=== PATIENT | male | born 1970 | race Caucasian/White ===

== ENCOUNTER 2022-03-15 09:51 | Outpatient (CLI) | payer BC, SELFPAY ==
--- NOTE | ~2022-03-15 | XR_ITS ---
EXAM: XR hip BI 2V w AP pelvis DATE: 03/15/2022 10:37 HISTORY: FALL X3WK AGO ONTO RT SIDE,SEVERE LT HIP PAIN,SCIATICA . COMPARISON: None available. FINDINGS: Normal mineralization. No fracture or dislocation. No lytic or blastic lesion. Mild superi or hip joint space narrowing and sclerosis bilaterally. Moderate pelvic and hip enthesopathy. Degener ative change in the lower lumbar spine. No erosion or periosteal change. Soft tissues within normal l imits. IMPRESSION: No acute osseous finding in the pelvis or bilateral hips Reviewed, dictated and finalized at location K. VAN DRIVER
--- NOTE | ~2022-03-15 | XR_ITS ---
EXAM: XR_CERV2-3V_CR DATE: 03/15/2022 10:36 HISTORY: FALL X3WK AGO ONTO RT SIDE,WHOLE BACK PAIN,SEVERE LT HIP SY . COMPARISON: None available. FINDINGS: Dental implants. Craniocervical association and atlantoaxial joint are aligned. Prominent a nterior arch of C1 versus accessory ossicle, with significant surrounding degenerative change. No pre vertebral soft tissue swelling. Vertebral bodies are aligned. Vertebral body heights are maintained. Multilevel mild disc space narrowing. Multilevel marked bridging anterior osteophyte formation. Multi level facet sclerosis and hypertrophy. IMPRESSION: Severe degenerative change at the atlantoaxial joint. Multilevel degenerative disc diseas e with large bridging osteophytes. Multilevel mild facet arthropathy. Reviewed, dictated and finalized at location K. SURE TANK OPERATOR IMPRESSION: Severe degenerative change at the atlantoaxial joint. Multilevel de generative disc disease with large bridging osteophytes. Multilevel mild facet arthropathy.
--- NOTE | ~2022-03-15 | XR_ITS ---
EXAM: XR thoracic spine 3V DATE: 03/15/2022 10:36 HISTORY: FALL X3WK AGO ONTO RT SIDE,WHOLE BACK PAIN,SEVERE LT HIP SY . COMPARISON: None available. FINDINGS: Median sternotomy wires, superior two wires are fractured. Incompletely visualized pacer l mp. Multilevel disc space narrowing. Flowing anterior osteophytes. No fracture or traumatic malalig nment. Mediastinal vascular clips. Visualized lung parenchyma clear. IMPRESSION: Multilevel degenerative disc disease. DISH. Reviewed, dictated and finalized at location K. CAL ASSISTANT FLOAT
--- NOTE | ~2022-03-15 | XR_ITS ---
EXAM: XR lumbar spine 2-3V DATE: 03/15/2022 10:36 HISTORY: FALL X3WK AGO ONTO RT SIDE,WHOLE BACK PAIN,SEVERE LT HIP SY . COMPARISON: None available. FINDINGS: 5 nonrib-bearing lumbar-type vertebral bodies. Pedicles intact. Normal vertebral body alig nment. Vertebral body heights preserved. Multilevel mild disc space narrowing and marginal osteophyto sis, including large bridging anterior osteophytes. Moderate moderate-severe multilevel facet scleros is and hypertrophy. No fracture or dislocation. IMPRESSION: Multilevel degenerative disc disease. Moderate-severe multilevel facet arthropathy. Reviewed, dictated and finalized at location K. L ENGINEERING TECHNICIAN IMPRESSION: Multilevel degenerative disc disease. Moderate-severe multilevel fa cet arthropathy.
== END 2022-03-15 09:52 | disposition home or self-care (01) ==
LOC: CHSIMG 09:54
PROVIDERS: PCP Family Medicine; Visit Provider Family Medicine
DX: G89.29 Other chronic pain (principal); M54.9 Dorsalgia, unspecified; I69.354 Hemiplegia and hemiparesis following cerebral infarction affecting left non-dominant side; M51.36 Other intervertebral disc degeneration, lumbar region; M12.88 Other specific arthropathies, not elsewhere classified, other specified site; M51.34 Other intervertebral disc degeneration, thoracic region; M48.14 Ankylosing hyperostosis [Forestier], thoracic region; M50.30 Other cervical disc degeneration, unspecified cervical region
CPT/HCPCS: 72040; 72072; 72100; 73521

== ENCOUNTER 2022-03-21 08:06 | Outpatient (RCR) | payer BC, SELFPAY ==
--- NOTE | 2022-03-21 09:46 | PTOPEVAL1 ---
Assessment and note entered by JT File, PT Evaluation Information Assessment Status Evaluation Diagnosis hemiparesis, hemiplegia Onset 03/13/22 Subjective Information patient reports he began having weakness on the L side of his body that he noticed after a fall. he reports he had a prior fall last year. currently they are thinking he has had a CVA, but no imaging has been done yet to confirm. he reports this last fall occured after his hips gave out and he fell flat to the ground. he reports he is coming to therapy for the weakness on the L side and for the the pain in the L hip and lower back. he reports he is awaiting an MRI (needs specialized for pacemaker). he reports he has increased pain in the L hip with rotating the hip outwards. Reported Pain Level Pain Score 0,0: Self Report Assessment PT Clinical Summary mr. kraft presents to skilled PT services for evaluation of weakness, pain, and abnormal gait following a potential stroke. he presents with L UE and LE hemiparesis, abnormal gait mechanics, decreased balance, and decreased functional activity performance. he would benefit from skilled PT to improve his objective/functional deficits and progress towards a return to his prior level functional activity performance/ quality of life. patient would do well to have an MRI of the head and neck to determine exact pathology for his L sided hemiparesis and abnormal gait. Plan of Care Interventions Gait Training,Neuro Re-education,Patient/Caregiver Educati,Therapeutic Activities,Therapeutic Exercise PT Services Indicated Yes Treatment Frequency and 3x weekly for 12 visits Duration These treatments will address the objective and functional deficits as defined above. The patient will be advanced safely and appropriately in order for the patient to progress towards his/her prior level of function. Additional exercises will be introduced and as well as a comprehensive home exercise program upon discharge, if needed, ?to ensure carryover of functional gains achieved in the clinic. This treatment plan has been reviewed and agreement upon by the patient.
--- NOTE | 2022-04-03 14:54 | OTOPEVAL1 ---
Assessment and note entered by Marine Victoria OT Evaluation Information Assessment Status Evaluation Diagnosis Hemiplegia and hemiparesis Onset 02/2023 Reported Pain Level Pain Score 10,10: Self Report Pain Score 10,2: Self Report Assessment OT Clinical Summary The patient is a 51 year old male who was referred to outpatient OT due to hemiplegia and hemiparesis following cerebral infarction with the patient experiencing L sided weakness. The patient previously was independent with all ADLs, IADLs, demonstrated WNL L UE strength, AROM, putty worker/ pinch strength and fine motor coordination. The patient now demonstrates significantly decreased UE AROM, UE strength, poor putty worker/pinch strength, poor fine motor coordination and utilizes shoulder to compensate for movements of distal UE. The patient demonstrates severely diminished sensation of L hand affecting safety during ADLs/IADLs. The patient requires skilled OT to address difficulties with L UE that affect his ability to use his hand for typing at work and all other aspects of ADLs. Plan of Care Interventions Therapeutic Exercise,Manual Therapy,Neuro Re- education,Therapeutic Activities,Hot Pack/Cold Pack,Cognitive Function,Sensory Integrative Techn, Self-Care/Home Management,Ultrasound OT Services Indicated Yes Treatment Frequency and 3x/week for 12 visits. Duration These treatments will address the objective and functional deficits as defined above. The patient will be advanced safely and appropriately in order for the patient to progress towards his/her prior level of function. Additional exercises will be introduced and as well as a comprehensive home exercise program upon discharge, if needed, ?to ensure carryover of functional gains achieved in the clinic. This treatment plan has been reviewed and agreement upon by the patient.
== END 2022-04-07 10:08 | disposition home or self-care (01) ==
LOC: CHSPT 08:06
PROVIDERS: PCP Family Medicine; Visit Provider Family Medicine
DX: I69.354 Hemiplegia and hemiparesis following cerebral infarction affecting left non-dominant side (principal)
CPT/HCPCS: 97110; 97112; 97162; 97166; 97530

== ENCOUNTER 2022-05-16 16:24 | Outpatient (RCR) | payer BC, SELFPAY ==
--- NOTE | 2022-05-16 17:15 | PTOPEVAL1 ---
Assessment and note entered by Sosa Medellin DPT Evaluation Information Assessment Status Evaluation Diagnosis weakness Onset 04/21/22 Subjective Information Patient reports he underwent a cervical fusion on 04/21/22 from C2-T1. He reports since surgery he has noticed a great improvement in strength, gait and balance. He reports he does feel the occasional unsteadiness and feels like the L side is weaker. He does report with increased activity he gets onset of neck pain. 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 Prior to sergery patient had multiple falls that resulted in L sided weakness, decreased sensation and impaired gait/balance. Reported Pain Level Pain Score 0: Self Report Assessment PT Clinical Summary Patient is a 52 year old male who presents to PT s /p cervical fusion. Patient demonstrate decreased cervical ROM, decreased L LE strength, impaired balance and impaired gait mechanics limiting his ability to ambulate prolonged distances, complete house hold chores and look over his shoulder when driving. Patient would benefit from skilled PT to address impairments and return to PLOF. Plan of Care Interventions Gait Training,Hot Pack/Cold Pack,Manual Therapy, Neuro Re-education,Patient/Caregiver Educati, Therapeutic Activities,Therapeutic Exercise,Self- Care/Home Management PT Services Indicated Yes These treatments will address the objective and functional deficits as defined above. The patient will be advanced safely and appropriately in order for the patient to progress towards his/her prior level of function. Additional exercises will be introduced and as well as a comprehensive home exercise program upon discharge, if needed, ?to ensure carryover of functional gains achieved in the clinic. This treatment plan has been reviewed and agreement upon by the patient.
--- NOTE | 2022-05-16 17:16 | PTOPEVAL1 ---
Assessment and note entered by Sosa Medellin DPT Evaluation Information Assessment Status Evaluation Diagnosis weakness Onset 04/21/22 Subjective Information Patient reports he underwent a cervical fusion on 04/21/22 from C2-T1. He reports since surgery he has noticed a great improvement in strength, gait and balance. He reports he does feel the occasional unsteadiness and feels like the L side is weaker. He does report with increased activity he gets onset of neck pain. 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 Prior to sergery patient had multiple falls that resulted in L sided weakness, decreased sensation and impaired gait/balance. Reported Pain Level Pain Score 0: Self Report Assessment PT Clinical Summary Patient is a 52 year old male who presents to PT s /p cervical fusion. Patient demonstrate decreased cervical ROM, decreased L LE strength, impaired balance and impaired gait mechanics limiting his ability to ambulate prolonged distances, complete house hold chores and look over his shoulder when driving. Patient would benefit from skilled PT to address impairments and return to PLOF. Plan of Care Interventions Gait Training,Hot Pack/Cold Pack,Manual Therapy, Neuro Re-education,Patient/Caregiver Educati, Therapeutic Activities,Therapeutic Exercise,Self- Care/Home Management PT Services Indicated Yes Treatment Frequency and 2x weekly for 8 visits Duration These treatments will address the objective and functional deficits as defined above. The patient will be advanced safely and appropriately in order for the patient to progress towards his/her prior level of function. Additional exercises will be introduced and as well as a comprehensive home exercise program upon discharge, if needed, ?to ensure carryover of functional gains achieved in the clinic. This treatment plan has been reviewed and agreement upon by the patient.
--- NOTE | 2022-05-16 17:51 | OTOPEVAL1 ---
Assessment and note entered by Nicole Early, OT Evaluation Information Assessment Status Evaluation Assessment Status Evaluation Diagnosis L side weakness Onset 04/21/22 Subjective Information Patient transitions from PT evaluation to OT. Patient states that he was seen for 2 OT sessions addressing L UE weakness and then had surgery, spinal fusion of C2-TI. Surgery 04/21/22 for fusion. Patient had a fall on 02/23/23 where he hit his head and within a couple weeks left side weakness developed and increased rapidly. He reports that weakness has improved since surgery however continues to be a concern. L UE weakness, altered sensation, and poor dexterity throughout the L UE are current OT concerns. Patient reports numbness and tingling in the whole L hand and mild tingling in the R hand. Patient works from home for a [employer] and spends most of his day on the computer. Patient reports that he is not able to do any typing at this time. He reports that performing all his IADLS are very taxing and he has only been able to complete a minimal amount. He states that doing anything that requires him to look down is difficult. Patient states that his activity tolerance and endurance are poor. Reported Pain Level Pain Score 0: Self Report Pain Score 0: Self Report Additional Pain Score Comments no pain at rest. with movement patient reports 5-6 /10 pain. Patient also mentions intermittent headaches since surgery. Patient is not taking any pain meds at this time but will occasionally take some Tylenol. Assessment OT Clinical Summary Patient is a 52 year old male who presents to outpatient OT following spinal fusion of C2-TI with concerns of L UE weakness. 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 Patient exhibits altered sensation in the L hand, decreased strength of the proximal and distal L UE , decreased activity tolerance and decreased fine motor dexterity of the L hand. These deficits are impacting his ability to perform his job as well as efficiently complete ADLs, specifically dressing and IADLs, specifically grocery shopping, cleaning and cooking. Plan of Care Interventions
--- NOTE | 2022-07-13 08:33 | PTOPDC ---
Assessment and note entered by JT File, PT Evaluation Information Assessment Status Discharge Diagnosis weakness Onset 04/21/22 Subjective Information patient reports he has been released by his surgeon, and is back to work. he reports he is ready for DC from skilled PT. he reports he is walking at home, and does do some of his exercises . Reported Pain Level Pain Score 0: Self Report Assessment PT Clinical Summary mr. kraft presents to skilled PT services for his 8th skilled PT visit. as of this date, he has met more than 50% of goals for skilled PT. he is back to work, and reports no limitations in his home life/community mobility. he will DC skilled PT today and continue with independent HEP. Plan of Care PT Services Indicated Yes
== END 2022-07-13 14:41 | disposition home or self-care (01) ==
LOC: CHSPT 16:24
DX: Z47.89 Encounter for other orthopedic aftercare (principal); G95.20 Unspecified cord compression; I50.20 Unspecified systolic (congestive) heart failure; Z98.1 Arthrodesis status
CPT/HCPCS: 97110; 97112; 97140; 97161; 97165; 97530